=== PATIENT | female | born 1930 | race Caucasian/White ===

== ENCOUNTER 2016-12-28 15:24 | Emergency (ER) | payer MEDICARE, OTHER ==
[~2016-12-28] VITALS: Ht 147.3 cm; Wt 51.0 kg
[~2016-12-28 15:24] MED LIST: ALPR.25 PO; ATOR10 PO; EYEDRO; LEVO.075 PO; LISI-363 PO; OMEP20TA39 PO; PROC60TA PO; SERT100 PO
[2016-12-28 15:38] VITALS: BP 176/75; PULSE 77; RESP 20; TEMP 97.5; O2SAT 97
[2016-12-28] MEDS ORDERED: MORPHINE SULFATE 4 MG/ML INJ IV PUSH ONE (16:00)
[2016-12-28] MEDS ORDERED: ONDANSETRON HCL 4 MG/2 ML VIAL IV PUSH ONE (16:00)
--- NOTE | 2016-12-28 16:01 | PD ---
HPI Chief Complaint: Pain: Acute or Chronic Time Seen by Provider: 15:57 Travel History International Travel<30 days: No Contact w/Intl Traveler<30days: No Traveled to known affect area: No History of Present Illness HPI 86-year-old female that presents to the ED for evaluation of pain to the left shoulder. Patient apparently had a trip and fall today will using her cane and she tripped on her cane. Patient landed on her left shoulder. Patient was not able to get up on her own because of the pain on the left shoulder. She denies any hip or leg pain. She has any neck or back pain. No chest pain or abdominal pain. She does not take any blood thinners. She denies hitting her head or losing consciousness. She called the ambulance who brought her here. Allergies to Fosamax, ibuprofen. Patient was given morphine by either back. No other injuries reported. Patient for pain right now is 6 out of 10. Gets worse with movement. Especially with abduction. 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 CAT. SX) Pacemaker: No Other Surgery: Yes (HERNIA) Social History Alcohol Use: No Tobacco Use: No Substance Use: No Allergies-Medications (Allergen,Severity, Reaction): Coded Allergies: Fosamax (Unverified Allergy, Severe, 12/28/16) Ibuprofen (Verified Allergy, Mild, 12/28/16) [place]-Dur (Verified Allergy, Mild, 12/28/16) Reported Meds & Prescriptions Reported Meds & Active Scripts Active Reported Lisinopril 20 mg (Lisinopril) 20 Mg Tab 1 Tab PO BID Hm Omeprazole (Omeprazole) 20 Mg Tab 20 Mg PO DAILY Procardia Xl (Nifedipine) 60 Mg Tabcr 60 Mg PO DAILY [Eye Drops] Lipitor (Atorvastatin Calcium) 10 Mg Tab 10 Mg PO BID Xanax 0.25 Mg (Alprazolam) 0.25 Mg Tab 0.25 Mg PO TID Synthroid (Levothyroxine Sodium) 75 Mcg Tab 88 Mcg PO DAILY Zoloft (Sertraline HCl) 100 Mg Tab 100 Mg PO DAILY Review of Systems Except as stated in HPI: all other systems reviewed are Neg Physical Exam Narrative GENERAL: SKIN: Warm and dry. HEAD: Atraumatic. Normocephalic. EYES: Pupils equal and round 4 mm reactive to light and accommodation. No scleral icterus. No injection or drainage. ENT: No nasal bleeding or discharge. Mucous membranes pink and moist. Tongue is midline. No uvula deviation. NECK: Trachea midline. No JVD. CARDIOVASCULAR: Regular rate and rhythm. No murmurs, S3, S4. RESPIRATORY: No accessory muscle use. Clear to auscultation. Breath sounds equal bilaterally. GASTROINTESTINAL: Abdomen soft, non-tender, nondistended. Hepatic and splenic margins not palpable. MUSCULOSKELETAL: Extremities without clubbing, cyanosis, or edema. No obvious deformities. Patient has obvious bruising and swelling noted on the left shoulder. Pain with abduction. Any movement on the shoulder causes pain. 2+ pulses bilaterally. No obvious elbow or wrist pain. Full range of motion of the right upper as well as the lower extremities bilaterally. No obvious hip pain. No obvious abdominal pain. No obvious deformities noted. NEUROLOGICAL: Awake and alert. No obvious cranial nerve deficits. Motor grossly within normal limits. Five out of 5 muscle strength in the arms and legs. Normal speech. PSYCHIATRIC: Appropriate mood and affect; insight and judgment normal. Data Data Last Documented VS Vital Signs Date Time Temp Pulse Resp B/P Pulse Ox O2 Delivery O2 Flow Rate FiO2 12/28/16 15:38 97.5 77 20 176/75 97 Orders Humerus (Min 2vws) (12/28/16 15:49) Ice/Cold Pack (12/28/16 15:49) Chest, Single Ap (12/28/16 15:49) Morphine Inj (Morphine Inj) (12/28/16 16:00) Ondansetron Inj (Zofran Inj) (12/28/16 16:00) Splint Or Brace Apply/Monitor (12/28/16 16:39) Shoulder, Complete (>2vws) (12/28/16 ) [facility] Medical Decision Making Medical Screen Exam Complete: Yes Emergency Medical Condition: Yes Medical Record Reviewed: Yes Interpretation(s) Last Impressions Humerus X-Ray 12/28/16 1549 Signed Impressions: Service Date/Time: December 16:18 - CONCLUSION: Displaced and foreshortened surgical neck fracture of the right humerus. Filiberto Nino MD Chest X-Ray 12/28/16 1549 Signed Impressions: Service Date/Time: December 16:16 - CONCLUSION: 1. No acute cardiopulmonary abnormality is identified. 2. There is a left proximal humerus fracture. Filiberto Denise MD Differential Diagnosis Fracture versus sprain versus strain versus bruise versus contusion Narrative Course 86-year-old female that presents to the ED for evaluation of injury to the left humerus. Patient was properly examined and was found to have signs and symptoms consistent with appears to be possible bony injury. X-rays were ordered. Patient was given already pain medication by [facility]. X-ray came back showing fracture of the left proximal humerus. Case was discussed with Dr. Gustafson for Dr. Baez service who recommends doing a shoulder specific x-ray and then called him back to see whether this will be surgical versus concerbative. Case will be signed out to incoming attending pending imaging results and disposition. Adair Baez December 28, 2016 16:01
--- NOTE | 2016-12-28 16:33 | RADRPT ---
EXAM DATE/TIME: 12/28/2016 16:16 [facility] COMPARISON: CHEST PA & LAT, December 20, 2015, 22:59. CHEST SINGLE AP, December 08, 2012, 16:19. INDICATIONS : Fell today. MEDICAL HISTORY : None. SURGICAL HISTORY : left elbow surgery ENCOUNTER: Initial ACUITY: 1 day PAIN SCORE: 0/10 LOCATION: Bilateral chest FINDINGS: Single AP view of the chest demonstrates a normal-sized cardiac silhouette with calcification of the aorta. No pleural effusion, airspace consolidation, or pneumothorax is visualized. There is a left pr oximal humerus fracture in the surgical neck region. CONCLUSION: 1. No acute cardiopulmonary abnormality is identified. 2. There is a left proximal humerus fracture. Filiberto Denise MD on December 28, 2016 at 16:30 Board Certified Radiologist. This report was verified electronically.
--- NOTE | 2016-12-28 16:33 | RADRPT ---
EXAM DATE/TIME: 12/28/2016 16:18 [facility] COMPARISON: No previous studies available for comparison. INDICATIONS : Fell, left upper arm pain. MEDICAL HISTORY : None. SURGICAL HISTORY : left elbow surgery ENCOUNTER: Initial ACUITY: 1 day PAIN SCORE: 8/10 LOCATION: Left humerus FINDINGS: There is a fracture in the surgical neck region of the left humerus. There is associated impaction/fo reshortening. The head is also displaced and rotated posteriorly with respect to the neck and shaft. I don't see clear articular surface involvement. CONCLUSION: Displaced and foreshortened surgical neck fracture of the right humerus. Filiberto Nino MD on December 28, 2016 at 16:30 Board Certified Radiologist. This report was verified electronically.
[2016-12-28 17:28] VITALS: BP 145/63; PULSE 63; RESP 18; O2SAT 96
--- NOTE | 2016-12-28 17:45 | PD ---
Physical Exam Date Seen by Provider: December 28, 2016 Time Seen by Provider: 17:42 Narrative 86-year-old elderly female presents to the emergency department for evaluation after a trip and fall and left shoulder pain. Patient was initially seen by Adair Baez in the ambulance hallway. She tripped over her cane and fell on her left shoulder. She denies hitting her head or any LOC. No neck pain or back pain. No chest pain or abdominal pain. No nausea or vomiting. She denies any hip or pelvic pain. She is not on any anticoagulants. Patient states she last ate at noon and she ate an [place]i muffin and applesauce. Caregiver is at bedside. GENERAL: Well-nourished, well-developed elderly female patient, afebrile. SKIN: Focused skin assessment warm/dry. HEAD: Normocephalic. Atraumatic. EYES: No scleral icterus. No injection or drainage. NECK: Supple, trachea midline. No JVD or lymphadenopathy. CARDIOVASCULAR: Regular rate and rhythm without murmurs, gallops, or rubs. Bilateral radial and pedal pulses 2+. RESPIRATORY: Breath sounds equal bilaterally. No accessory muscle use. Lungs sounds are clear to auscultation. GASTROINTESTINAL: Abdomen soft, non-tender, nondistended. MUSCULOSKELETAL: No cyanosis, or edema. Patient has laying on left arm with tenderness over left upper arm/shoulder. BACK: Nontender without obvious deformity. No CVA tenderness. Data Data Last Documented VS Vital Signs Date Time Temp Pulse Resp B/P Pulse Ox O2 Delivery O2 Flow Rate FiO2 12/28/16 17:28 63 18 145/63 96 Room Air 12/28/16 15:38 97.5 Orders Humerus (Min 2vws) (12/28/16 15:49) Ice/Cold Pack (12/28/16 15:49) Chest, Single Ap (12/28/16 15:49) Morphine Inj (Morphine Inj) (12/28/16 16:00) Ondansetron Inj (Zofran Inj) (12/28/16 16:00) Splint Or Brace Apply/Monitor (12/28/16 16:39) Shoulder, Limited(2vws) (12/28/16 ) MDM Supervised Visit with CRYSTAL: No Interpretation(s) Last Impressions Humerus X-Ray 12/28/16 9085 Signed Impressions: Service Date/Time: December 16:18 - CONCLUSION: Displaced and foreshortened surgical neck fracture of the right humerus. Filiberto Nino MD Chest X-Ray 12/28/16 1549 Signed Impressions: Service Date/Time: December 16:16 - CONCLUSION: 1. No acute cardiopulmonary abnormality is identified. 2. There is a left proximal humerus fracture. Filiberto Denise MD x-ray left shoulder - impacted and displaced surgical neck fracture of the left humerus Differential Diagnosis Fracture versus contusion versus sprain Narrative Course 86-year-old elderly female presents to the emergency department for evaluation of left shoulder pain after a trip and fall. Patient was initially seen in the ambulance hallway was transferred to my pod. X-ray of the left ear shows a displaced and foreshortened surgical neck fracture of the right humerus. Chest x-ray showed no acute cardiopulmonary abnormality. Previous PA spoke to Dr. Gustafson he would like a dedicated shoulder x-ray completed and then to call him back. Awaiting x-ray at this time. X-ray of the left shoulder shows impacted and displaced surgical neck fracture of the left humerus. I spoke to Dr. Gustafson, orthopedist on-call, who states this is nonoperative. He like a [id number] when she can follow-up in the office. The patient will be discharged a short-term prescription for Lortab. She verbalizes agreement and understanding. Her caregiver is at bedside. The patient was discharged in stable condition with instructions, including return instructions and follow up instructions. Diagnosis Primary Impression: Left humeral fracture Qualified Code: S42.222A - Closed 2-part displaced fracture of surgical neck of left humerus, initial encounter Referrals: Korey Gustafson MD call for appointment Patient Instructions: Arm Fracture in Adults (ED), General Instructions Additional Instruction: Wear sling and swath. Lortab as directed as needed for pain. Caution this can make you drowsy so do not drive after taking. Follow-up precautions. Follow-up with Dr. Gustafson, orthopedist. Return to the emergency department for any acute worsening of symptoms. Med/Other Pt SpecificInfo: Prescription(s) given Scripts Hydrocodone-Acetaminophen (Lortab)5-325 Mg Tab1 Tab PO Q6H PRN (PAIN) #20 TAB Ref 0 Prov:Leila Patricio MD 12/28/16 Disposition: 01 DISCHARGE HOME Condition: Stable Babs Copeland December 28, 2016 17:45
--- NOTE | 2016-12-28 17:52 | RADRPT ---
EXAM DATE/TIME: 12/28/2016 17:45 [facility] COMPARISON: HUMERUS LEFT (MIN 2VWS), December 28, 2016, 16:18. INDICATIONS : Left shoulder pain after fall. MEDICAL HISTORY : None. SURGICAL HISTORY : None. ENCOUNTER: Subsequent ACUITY: 1 day PAIN SCORE: 5/10 LOCATION: Left shoulder. FINDINGS: Impacted surgical neck fracture again seen of the left humerus. Head is posteriorly displaced and rot ated relative to the neck. No subluxation seen. Articular surfaces are grossly intact. No other left shoulder fractures are demonstrated. CONCLUSION: Impacted and displaced surgical neck fracture of the left humerus. Filiberto Nino MD on December 28, 2016 at 17:49 Board Certified Radiologist. This report was verified electronically.
[2016-12-28] MEDS ORDERED: NIFE30TA61 PO (18:28)
[2016-12-28] MEDS ORDERED: MAGN250T2 PO (18:28)
[2016-12-28] MEDS ORDERED: LISI10TA3 PO (18:28)
[2016-12-28] MEDS ORDERED: LIPI10TA PO (18:28)
[2016-12-28] MEDS ORDERED: ZOLO100T PO (18:28)
[2016-12-28] MEDS ORDERED: LEVO.075 PO (18:28)
[2016-12-28] MEDS ORDERED: LACTCAP8 PO (18:28)
[2016-12-28] MEDS ORDERED: OMEP20TA PO (18:28)
[2016-12-28] MEDS ORDERED: CALC0.25 PO (18:28)
[2016-12-28] MEDS ORDERED: ALPR.25 PO (18:28)
[2016-12-28] MEDS ORDERED: HYDR-3533 PO (18:42)
== END 2016-12-28 19:43 | disposition home or self-care (01) ==
LOC: NEPC 15:24
DX: S42.212A Unspecified displaced fracture of surgical neck of left humerus, initial encounter for closed fracture (principal); I10 Essential (primary) hypertension; W01.0XXA Fall on same level from slipping, tripping and stumbling without subsequent striking against object, initial encounter; Y93.01 Activity, walking, marching and hiking; Y92.009 Unspecified place in unspecified non-institutional (private) residence as the place of occurrence of the external cause
CPT/HCPCS: 71010; 73030; 73060; 99284